=== PATIENT | female | born 1965 | race Caucasian/White ===

== ENCOUNTER → 2022-03-07 | Outpatient (CLI) | payer OTHER ==
--- NOTE | 2022-03-07 11:53 | RAD ---
EXAM: Lumbar spine, 2 views. HISTORY: Pain. COMPARISON: None. FINDINGS: 2 views of the lumbar spine are obtained. There is lumbar dextroscoliosis centered at T12-L 1. There is no listhesis. There is degenerative endplate remodeling and facet arthropathy predominant ly at L5-S1. IMPRESSION: Degenerative change primarily at L5-S1. Mild scoliosis. Electronically signed by: Dannielle Rodriguez MD (03/07/2022 11:50 AM) [id number]
== END ==
LOC: RAD 10:53
PROVIDERS: ATTEND Family Medicine
DX: Z02.71 Encounter for disability determination (principal); M47.817 Spondylosis without myelopathy or radiculopathy, lumbosacral region; M48.8X7 Other specified spondylopathies, lumbosacral region; M41.85 Other forms of scoliosis, thoracolumbar region
CPT/HCPCS: 72100